=== PATIENT | male | born 1950 | race Caucasian/White ===

== ENCOUNTER 2018-04-16 06:36 | Day surgery (SDC) | payer OTHER ==
[~2018-04-16] VITALS: Ht 176.5 cm; Wt 125.7 kg
[~2018-04-16 06:36] MED LIST: ASPIR 8181 M1 PO; VITAMIN D31000 UNIT PO
[2018-04-16 08:10] VITALS: BP 139/98
[2018-04-16 10:40] VITALS: BP 157/93; BP 158/107
== END 2018-04-16 11:05 | disposition home or self-care (01) ==
LOC: SDC 06:36
PROC: 08DJ3ZZ Extraction of Right Lens, Percutaneous Approach (ICD-10-PCS; principal; 2018-04-16)
PROC: 08B43ZZ Excision of Right Vitreous, Percutaneous Approach (ICD-10-PCS; principal; 2018-04-16)
DX: H44.6 Retained (old) intraocular foreign body, magnetic (principal); H27.01 Aphakia, right eye; I25.10 Atherosclerotic heart disease of native coronary artery without angina pectoris; E78.5 Hyperlipidemia, unspecified; I10 Essential (primary) hypertension; Z79.82 Long term (current) use of aspirin; F17.200 Nicotine dependence, unspecified, uncomplicated; I25.2 Old myocardial infarction
CPT/HCPCS: 93005; J0690; J2250